=== PATIENT | female | born 1990 | race Caucasian/White ===

== ENCOUNTER 2019-06-27 22:30 | Observation (INO) ==
[2019-06-27 23:04] LABS: Bilirubin,Urine Negative (Negative); Blood,Urine Negative (Negative); Clarity,Urine Clear (Clear); Color,Urine Yellow (Yellow); Glucose,Urine (UA) Normal (Normal); Ketones,Urine Negative (Negative); Leukocyte Esterase,Urine Small (Negative); Nitrite,Urine Negative (Negative); Protein,Urine Negative (Neg-Trace); Specific Gravity,Urine 1.026 (1.010-1.025); Urobilinogen,Urine Normal (Normal)
[2019-06-27 23:07] LABS: Amphetamine Screen,Urine Negative ng/mL (Cutoff=1000); Barbiturate Screen,Urine Negative ng/mL (Cutoff=200); Benzodiazepines Screen,Urine Negative ng/mL (Cutoff=200); Cannabinoid Screen,Urine Negative ng/mL (Cutoff = 50); Cocaine Screen,Urine Negative ng/mL (Cutoff= 300); Opiate Screen,Urine Negative ng/mL (Cutoff=300); Phencyclidine Screen,Urine Negative ng/mL (Cutoff=25)
[2019-06-27 23:22] LABS: Basophils # 0.1 K/mcL (0.0-0.2); Basophils % 0.6 %; Eosinophils # 0.1 K/mcL (0.0-0.6); Hematocrit 45.4 % (35.3-44.9); Hemoglobin 14.5 g/dL (11.5-15.4); Immature Granulocytes % 0.4 % (0-4); Lymphocytes # 2.3 K/mcL (0.6-4.6); Mean Corpuscular HGB Conc 31.9 g/dL (31.6-35.5); Mean Corpuscular Hemoglobin 27.8 pg (28.0-33.3); Mean Corpuscular Volume 87.1 fL (83.0-100.0); Mean Platelet Volume 9.1 fL (9.4-12.4); Monocytes # 0.8 K/mcL (0.0-1.3); Monocytes % 6.9 %; Neutrophils # 7.6 K/mcL (1.6-8.9); Platelet Count 315 K/mcL (140-400); Red Blood Count 5.21 M/mcL (3.82-4.97); Red Cell Distribution Width 14.7 % (11.5-14.5); Segmented Neutrophils % 70.1 %; White Blood Count 10.9 K/mcL (4.3-11.1)
[2019-06-27 23:47] LABS: Acetaminophen < 10 mcg/mL (10-20); BUN/Creatinine Ratio 20 (6-26); Blood Urea Nitrogen 19 mg/dL (6-20); Calcium 9.6 mg/dL (8.6-10.3); Carbon Dioxide 24 mEq/L (23-29); Chloride 103 mEq/L (98-107); Ethanol < 10 mg/dL (Less than 10); Glucose 116 mg/dL (70-105); Osmolality,Calculated 287 (280-300); Potassium 3.5 mEq/L (3.5-5.1); Salicylate < 2.5 mg/dL (15.0-30.0); Sodium 137 mEq/L (136-145); eGFR For African Americans > 60 (> 60); eGFR For Non-African Americans > 60 (> 60)
--- NOTE | 2019-06-28 04:27 | Emergency Department Note ---
Disposition Clinical Impression: Suicidal ideation Disposition: Admitted As Inpatient Condition: Fair Referrals: NONE,PCP [Primary Care Provider] - Time of Disposition: 04:28 Psych HPI - General Chief Complaint: ED Psychiatric Symptoms Stated Complaint: SI Time Seen by Provider: 06/27/19 23:00 Source: patient, family Mode of arrival: private vehicle Limitations: no limitations Nursing Notes Reviewed: Yes Vital Signs Reviewed: Yes - History of Present Illness Pt complaint: suicidal ideation If medical clearance, reason: psychiatric condition Onset (ago): week(s) Duration: getting worse History of similar episodes: Yes Improves with: none Worsens with: none Context: significant life stressor Alleged intoxication: No - Related Data Home Medications Medication Instructions Recorded Confirmed BuPROPion SR (12 HR) [Wellbutrin 150 mg PO DAILY 06/28/19 06/28/19 SR] Sertraline [Zoloft] 100 mg PO DAILY 06/28/19 06/28/19 hydroCHLOROthiazide 25 mg PO DAILY 06/28/19 06/28/19 [Hydrochlorothiazide] lamoTRIgine [Lamictal] 100 mg PO DAILY 06/28/19 06/28/19 Allergies Allergy/AdvReac Type Severity Reaction Status Date / Time No Known Allergies Allergy Verified 02/04/19 11:21 Past Medical History - Past Medical History Medical history: Reports: hypertension Psychiatric history: Reports: depression, prior suicide attempt, previous psychiatric hospitalization - Social History Smoking Status: Former smoker Smokeless Tobacco Status: Yes Alcohol use: Reports: none Drug use: Reports: none Physical Exam - General Limitations: no limitations General appearance: alert, in no apparent distress Course Vital Signs Temperature 98.3 F 06/27/19 22:32 Pulse Rate 99 06/27/19 22:32 Respiratory Rate 20 06/27/19 22:32 Blood Pressure 161/99 06/27/19 22:32 O2 Sat by Pulse Oximetry 97 06/27/19 22:32 Temperature 98.3 F 06/27/19 22:32 Pulse Rate 91 06/28/19 02:30 Respiratory Rate 16 06/28/19 02:30 Blood Pressure 118/75 06/28/19 02:30 O2 Sat by Pulse Oximetry 98 06/28/19 02:30 Oxygen Delivery Oxygen Delivery Room Air Psych - Lab Data Result diagrams: 06/27/19 22:53 06/27/19 22:53 Lab Results 06/27/19 06/27/19 06/27/19 Range/Units 22:40 22:40 22:40 WBC (4.3-11.1) K/mcL RBC (3.82-4.97) M/mcL Hgb (11.5-15.4) g/dL Hct (35.3-44.9) % MCV (83.0-100.0) fL MCH (28.0-33.3) pg MCHC (31.6-35.5) g/dL RDW (11.5-14.5) % Plt Count (140-400) K/mcL MPV (9.4-12.4) fL Immature Gran % (0-4) % Seg Neutrophils % % Lymphocytes % % Monocytes % % Eosinophils % % Basophils % % Neutrophils # (1.6-8.9) K/mcL Lymphocytes # (0.6-4.6) K/mcL Monocytes # (0.0-1.3) K/mcL Eosinophils # (0.0-0.6) K/mcL Basophils # (0.0-0.2) K/mcL Sodium (136-145) mEq/L Potassium (3.5-5.1) mEq/L Chloride (98-107) mEq/L Carbon Dioxide (23-29) mEq/L BUN (6-20) mg/dL Creatinine (0.60-1.20) mg/dL Est GFR ( Amer) (> 60) Est GFR (Non-Af Amer) (> 60) BUN/Creatinine Ratio (6-26) Glucose (70-105) mg/dL Calculated Osmolality (280-300) Calcium (8.6-10.3) mg/dL Urine Color Yellow (Yellow) Urine Clarity Clear (Clear) Urine pH 6.0 (5.0-8.0) pH Units Ur Specific [place] 1.026 H (1.010-1.025) Urine Protein Negative (Neg-Trace) mg/dL Urine Glucose (UA) Normal (Normal) mg/dL Urine Ketones Negative (Negative) mg/dL Urine Blood Negative (Negative) Urine Nitrite Negative (Negative) Urine Bilirubin Negative (Negative) Urine Urobilinogen Normal (Normal) mg/dL Ur Leukocyte Esterase Small H (Negative) Urine Microscopic WBC 3-5 H (0-3) per hpf Urine Test Negative (Negative) Salicylates (15.0-30.0) mg/dL Urine Opiates Screen Negative (Sitofo=612) ng/mL Ur Buprenorphine Scrn Negative (Cutoff=5) ng/mL Acetaminophen (10-20) mcg/mL Ur Barbiturates Screen Negative (Uuakgg=734) ng/mL Ur Phencyclidine Scrn Negative (Cutoff=25) ng/mL Ur Amphetamines Screen Negative (Kkubdw=2535) ng/mL U Benzodiazepines Scrn Negative (Kjpfau=883) ng/mL Urine Cocaine Screen Negative (Cutoff= 300) ng/mL U Marijuana (THC) Screen Negative (Cutoff = 50) ng/mL Ur Drug Screen Interp See Below Ethyl Alcohol (Less than 10) mg/dL 06/27/19 06/27/19 Range/Units 22:53 22:53 WBC 10.9 (4.3-11.1) K/mcL RBC 5.21 H (3.82-4.97) M/mcL Hgb 14.5 (11.5-15.4) g/dL Hct 45.4 H (35.3-44.9) % MCV 87.1 (83.0-100.0) fL MCH 27.8 L (28.0-33.3) pg MCHC 31.9 (31.6-35.5) g/dL RDW 14.7 H (11.5-14.5) % Plt Count 315 (140-400) K/mcL MPV 9.1 L (9.4-12.4) fL Immature Gran % 0.4 (0-4) % Seg Neutrophils % 70.1 % Lymphocytes % 21.0 % Monocytes % 6.9 % Eosinophils % 1.0 % Basophils % 0.6 % Neutrophils # 7.6 (1.6-8.9) K/mcL Lymphocytes # 2.3 (0.6-4.6) K/mcL Monocytes # 0.8 (0.0-1.3) K/mcL Eosinophils # 0.1 (0.0-0.6) K/mcL Basophils # 0.1 (0.0-0.2) K/mcL Sodium 137 (136-145) mEq/L Potassium 3.5 (3.5-5.1) mEq/L Chloride 103 (98-107) mEq/L Carbon Dioxide 24 (23-29) mEq/L BUN 19 (6-20) mg/dL Creatinine 0.93 (0.60-1.20) mg/dL Est GFR ( Amer) > 60 (> 60) Est GFR (Non-Af Amer) > 60 (> 60) BUN/Creatinine Ratio 20 (6-26) Glucose 116 H (70-105) mg/dL Calculated Osmolality 287 (280-300) Calcium 9.6 (8.6-10.3) mg/dL Urine Color (Yellow) Urine Clarity (Clear) Urine pH (5.0-8.0) pH Units Ur Specific [place] (1.010-1.025) Urine Protein (Neg-Trace) mg/dL Urine Glucose (UA) (Normal) mg/dL Urine Ketones (Negative) mg/dL Urine Blood (Negative) Urine Nitrite (Negative) Urine Bilirubin (Negative) Urine Urobilinogen (Normal) mg/dL Ur Leukocyte Esterase (Negative) Urine Microscopic WBC (0-3) per hpf Urine Test (Negative) Salicylates < 2.5 L (15.0-30.0) mg/dL Urine Opiates Screen (Qeykoo=814) ng/mL Ur Buprenorphine Scrn (Cutoff=5) ng/mL Acetaminophen < 10 L (10-20) mcg/mL Ur Barbiturates Screen (Fawklr=564) ng/mL Ur Phencyclidine Scrn (Cutoff=25) ng/mL Ur Amphetamines Screen (Epepqx=2318) ng/mL U Benzodiazepines Scrn (Ycrpvu=271) ng/mL Urine Cocaine Screen (Cutoff= 300) ng/mL U Marijuana (THC) Screen (Cutoff = 50) ng/mL Ur Drug Screen Interp Ethyl Alcohol < 10 (Less than 10) mg/dL Psychiatric Medical Clearance - Medical Clearance Checklist Medical History: No Social History Section defined Current Vitals: Last Vital Signs Temp 98.3 F 06/27/19 22:32 Pulse 91 06/28/19 02:30 Resp 16 06/28/19 02:30 BP 118/75 06/28/19 02:30 Pulse Ox 98 06/28/19 02:30 Psychiatric Lab Panel: Drug Levels and Toxicity 06/27/19 06/27/19 22:40 22:53 Urine Opiates Screen Negative Acetaminophen < 10 L Ur Barbiturates Screen Negative Ur Phencyclidine Scrn Negative Ur Amphetamines Screen Negative U Benzodiazepines Scrn Negative Urine Cocaine Screen Negative U Marijuana (THC) Screen Negative Ethyl Alcohol < 10 Abnormal Labs: Abnormal lab results RBC 5.21 M/mcL (3.82-4.97) H 06/27/19 22:53 Hct 45.4 % (35.3-44.9) H 06/27/19 22:53 MCH 27.8 pg (28.0-33.3) L 06/27/19 22:53 RDW 14.7 % (11.5-14.5) H 06/27/19 22:53 MPV 9.1 fL (9.4-12.4) L 06/27/19 22:53 Glucose 116 mg/dL (70-105) H 06/27/19 22:53 Ur Specific [place] 1.026 (1.010-1.025) H 06/27/19 22:40 Ur Leukocyte Esterase Small (Negative) H 06/27/19 22:40 Urine Microscopic WBC 3-5 per hpf (0-3) H 06/27/19 22:40 Salicylates < 2.5 mg/dL (15.0-30.0) L 06/27/19 22:53 Acetaminophen < 10 mcg/mL (10-20) L 06/27/19 22:53 Statement of Medical Clearance: I have evaluated the patient, reviewed diagnostic information, and certify that the patient's medical condition is sufficiently stable that transfer to the psychiatric unit does not pose a significant risk of deterioration.
[2019-06-28 04:28] VITALS: BP 123/84
--- NOTE | 2019-06-28 04:28 | Emergency Department Note ---
Disposition Clinical Impression: Suicidal ideation Disposition: Admitted As Inpatient Condition: Fair Time of Disposition: 06:47 General Adult HPI - General Chief complaint: ED Psychiatric Symptoms Stated complaint: SI Time Seen by Provider: 06/27/19 23:00 Source: patient Limitations: no limitations - History of Present Illness Pain Scale: 0 - Related Data Home Medications Medication Instructions Recorded Confirmed BuPROPion SR (12 HR) [Wellbutrin 150 mg PO DAILY 06/28/19 06/28/19 SR] Sertraline [Zoloft] 100 mg PO DAILY 06/28/19 06/28/19 hydroCHLOROthiazide 25 mg PO DAILY 06/28/19 06/28/19 [Hydrochlorothiazide] lamoTRIgine [Lamictal] 100 mg PO DAILY 06/28/19 06/28/19 Allergies Allergy/AdvReac Type Severity Reaction Status Date / Time No Known Allergies Allergy Verified 02/04/19 11:21 Past Medical History - Past Medical History Medical history: Reports: hypertension Psychiatric history: Reports: depression, prior suicide attempt, previous psychiatric hospitalization - Social History Smoking Status: Former smoker Smokeless Tobacco Status: Yes Alcohol use: Reports: none Drug use: Reports: none Physical Exam - General Limitations: no limitations General appearance: alert, in no apparent distress Course Vital Signs Temperature 98.3 F 06/27/19 22:32 Pulse Rate 99 06/27/19 22:32 Respiratory Rate 20 06/27/19 22:32 Blood Pressure 161/99 06/27/19 22:32 O2 Sat by Pulse Oximetry 97 06/27/19 22:32 Temperature 98.1 F 06/28/19 04:27 Pulse Rate 100 06/28/19 04:27 Respiratory Rate 17 06/28/19 04:27 Blood Pressure 123/84 06/28/19 04:27 O2 Sat by Pulse Oximetry 97 06/28/19 04:27 Oxygen Delivery Oxygen Delivery Room Air Medical Decision Making - Lab Data Result diagrams: 06/27/19 22:53 06/27/19 22:53 Lab Results 06/27/19 06/27/19 06/27/19 Range/Units 22:40 22:40 22:40 WBC (4.3-11.1) K/mcL RBC (3.82-4.97) M/mcL Hgb (11.5-15.4) g/dL Hct (35.3-44.9) % MCV (83.0-100.0) fL MCH (28.0-33.3) pg MCHC (31.6-35.5) g/dL RDW (11.5-14.5) % Plt Count (140-400) K/mcL MPV (9.4-12.4) fL Immature Gran % (0-4) % Seg Neutrophils % % Lymphocytes % % Monocytes % % Eosinophils % % Basophils % % Neutrophils # (1.6-8.9) K/mcL Lymphocytes # (0.6-4.6) K/mcL Monocytes # (0.0-1.3) K/mcL Eosinophils # (0.0-0.6) K/mcL Basophils # (0.0-0.2) K/mcL Sodium (136-145) mEq/L Potassium (3.5-5.1) mEq/L Chloride (98-107) mEq/L Carbon Dioxide (23-29) mEq/L BUN (6-20) mg/dL Creatinine (0.60-1.20) mg/dL Est GFR ( Amer) (> 60) Est GFR (Non-Af Amer) (> 60) BUN/Creatinine Ratio (6-26) Glucose (70-105) mg/dL Calculated Osmolality (280-300) Calcium (8.6-10.3) mg/dL Urine Color Yellow (Yellow) Urine Clarity Clear (Clear) Urine pH 6.0 (5.0-8.0) pH Units Ur Specific [place] 1.026 H (1.010-1.025) Urine Protein Negative (Neg-Trace) mg/dL Urine Glucose (UA) Normal (Normal) mg/dL Urine Ketones Negative (Negative) mg/dL Urine Blood Negative (Negative) Urine Nitrite Negative (Negative) Urine Bilirubin Negative (Negative) Urine Urobilinogen Normal (Normal) mg/dL Ur Leukocyte Esterase Small H (Negative) Urine Microscopic WBC 3-5 H (0-3) per hpf Urine Test Negative (Negative) Salicylates (15.0-30.0) mg/dL Urine Opiates Screen Negative (Wjoffa=570) ng/mL Ur Buprenorphine Scrn Negative (Cutoff=5) ng/mL Acetaminophen (10-20) mcg/mL Ur Barbiturates Screen Negative (Uqwsrp=032) ng/mL Ur Phencyclidine Scrn Negative (Cutoff=25) ng/mL Ur Amphetamines Screen Negative (Qwpbuk=6993) ng/mL U Benzodiazepines Scrn Negative (Bfqknd=973) ng/mL Urine Cocaine Screen Negative (Cutoff= 300) ng/mL U Marijuana (THC) Screen Negative (Cutoff = 50) ng/mL Ur Drug Screen Interp See Below Ethyl Alcohol (Less than 10) mg/dL 06/27/19 06/27/19 Range/Units 22:53 22:53 WBC 10.9 (4.3-11.1) K/mcL RBC 5.21 H (3.82-4.97) M/mcL Hgb 14.5 (11.5-15.4) g/dL Hct 45.4 H (35.3-44.9) % MCV 87.1 (83.0-100.0) fL MCH 27.8 L (28.0-33.3) pg MCHC 31.9 (31.6-35.5) g/dL RDW 14.7 H (11.5-14.5) % Plt Count 315 (140-400) K/mcL MPV 9.1 L (9.4-12.4) fL Immature Gran % 0.4 (0-4) % Seg Neutrophils % 70.1 % Lymphocytes % 21.0 % Monocytes % 6.9 % Eosinophils % 1.0 % Basophils % 0.6 % Neutrophils # 7.6 (1.6-8.9) K/mcL Lymphocytes # 2.3 (0.6-4.6) K/mcL Monocytes # 0.8 (0.0-1.3) K/mcL Eosinophils # 0.1 (0.0-0.6) K/mcL Basophils # 0.1 (0.0-0.2) K/mcL Sodium 137 (136-145) mEq/L Potassium 3.5 (3.5-5.1) mEq/L Chloride 103 (98-107) mEq/L Carbon Dioxide 24 (23-29) mEq/L BUN 19 (6-20) mg/dL Creatinine 0.93 (0.60-1.20) mg/dL Est GFR ( Amer) > 60 (> 60) Est GFR (Non-Af Amer) > 60 (> 60) BUN/Creatinine Ratio 20 (6-26) Glucose 116 H (70-105) mg/dL Calculated Osmolality 287 (280-300) Calcium 9.6 (8.6-10.3) mg/dL Urine Color (Yellow) Urine Clarity (Clear) Urine pH (5.0-8.0) pH Units Ur Specific [place] (1.010-1.025) Urine Protein (Neg-Trace) mg/dL Urine Glucose (UA) (Normal) mg/dL Urine Ketones (Negative) mg/dL Urine Blood (Negative) Urine Nitrite (Negative) Urine Bilirubin (Negative) Urine Urobilinogen (Normal) mg/dL Ur Leukocyte Esterase (Negative) Urine Microscopic WBC (0-3) per hpf Urine Test (Negative) Salicylates < 2.5 L (15.0-30.0) mg/dL Urine Opiates Screen (Vprefn=510) ng/mL Ur Buprenorphine Scrn (Cutoff=5) ng/mL Acetaminophen < 10 L (10-20) mcg/mL Ur Barbiturates Screen (Wkccgm=784) ng/mL Ur Phencyclidine Scrn (Cutoff=25) ng/mL Ur Amphetamines Screen (Ftisjz=0683) ng/mL U Benzodiazepines Scrn (Jurgov=318) ng/mL Urine Cocaine Screen (Cutoff= 300) ng/mL U Marijuana (THC) Screen (Cutoff = 50) ng/mL Ur Drug Screen Interp Ethyl Alcohol < 10 (Less than 10) mg/dL Attestation Statement - Attestation Attestation: For this encounter, I have reviewed the LEATH[employer] PRODUCTION MACHINE OPERATOR or PA documentation, treatment plan, and medical decision making; and I have had face to face time with this patient. [id number] time provided. Patient appears in no acute distress. She will be admitted to the mental health service
[2019-06-28] MEDS ORDERED: *HR* LORazepam 1 MG TABLET PO PRN (04:35)
[2019-06-28] MEDS ORDERED: *HR* LORazepam 2 MG/ML VIAL IM PRN (04:35)
[2019-06-28] MEDS ORDERED: Mag Hydrox/Al Hydrox/Simeth 30 ML UDC PO PRN (04:35)
[2019-06-28] MEDS ORDERED: hydrOXYzine pamoate 25 MG CAPSULE PO PRN (04:35)
[2019-06-28] MEDS ORDERED: Haloperidol Lactate 5 MG/ML VIAL IM PRN (04:35)
[2019-06-28] MEDS ORDERED: traZODone 50 MG TABLET PO PRN (04:35)
[2019-06-28] MEDS ORDERED: MOM Conc 10 ML UD.LIQ PO PRN (04:35)
[2019-06-28] MEDS ORDERED: Ibuprofen 400 MG TABLET PO PRN (04:35)
[2019-06-28] MEDS ORDERED: Nicotine 14 MG PATCH.TD24 TD SCH (09:00)
--- NOTE | 2019-06-28 12:13 | Psychiatry History & Physical ---
Date of Encounter: 06/28/19 Time of Encounter: 10:00 History of Present Illness Patient Stated Chief Complaint: Self-harm Medicare Admission Attestation: For traditional Medicare patients the provided hospital inpatient services are reasonable and necessary and in the case of services not specified as inpatient-only under 42 CFR 419.22 (n), that they are appropriately provided as inpatient services in accordance 42 CFR 412.3. For Critical Access Hospital the patient may reasonably be expected to be discharged or transferred to a hospital within 96 hours after admission to the Critical Access Hospital. Admitted From: Emergency Dept Plans for Post Hospital Care: Transfer Inp Rehab Fac (Client came from [facility].) History of Present Illness: Ms. Coon is a 29 year old female who was admitted from the ER for suicidal ideation/plan. She states last Thursday reporting to staff at [facility] thoughts of self-harm. A self-harm contract was made and client was observed during the weekend. She reports feeling uncomfortable with the extra attention and says that is the reason for buying a "box spring maker" on Thursday to harm herself. She was brought to the ER after staff discovered she had purchased the box spring maker and reported plan and intent to initiate self-harm. She has resided at [facility] for treatment of substance use disorder the past 4 months. She states "heroin is drug of choice". 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 Prior to [facility] she was living in [place] with a roommate and lost housing after an accidental overdose with heroin. She reports multiple hospitalizations for SI and SA. Client at time of interview was seen at bedside. She appeared irritable and withdrawn. Client described mood as "depressed and irritable". She did not endorse suicidal thought/ideation/plan. She reports medications as Zoloft 100 mg PO once daily, Lamicatal 100 mg PO and Wellbutrin 150 mg PO. Past Med Surg Social Fam HX - Past Medical History Source: patient Medical history: hypertension - Past Psychiatric History Psychiatric history: Reports: depression, PTSD, prior suicide attempt, previous psychiatric hospitalization Past psychiatric history details: Client self-reports history of being diagnosed with PTSD, MDD,RAMON, OCD and Borderline disorder. She has been hospitalized on multiple occasions for SI and SA via heroin overdose and intentional medication overdoses. She is currently at [facility] for past 4 months for drug rehabilitation. Family psychiatric history: Yes Family Psychiatric History Details: Mother reported as having multiple mental health problems, unspecified. Family History of Suicide: Attempted Family Suicide History Details: Mother reported as multiple suicide attempts. - Social History Smoking Status: Former smoker Smokeless Tobacco Status: Yes Alcohol use: none Drug use: none, IV Drug Use (Endorses 14 year history of Heroin use. Last use in December of this year. ) Occupational status: unemployed Current living situation: Other ([facility] for [facility] past 4 months. ) Activity Level: Independent ambulation Recent Out of Country Travel Within the Last 8 Weeks: No Exposure or Possible Exposure to Illness During Travel: No Medications & Allergies BuPROPion SR (12 HR) [Wellbutrin SR] 150 mg PO DAILY 06/28/19 [History] Sertraline [Zoloft] 100 mg PO DAILY 06/28/19 [History] hydroCHLOROthiazide [Hydrochlorothiazide] 25 mg PO DAILY 06/28/19 [History] lamoTRIgine [Lamictal] 100 mg PO DAILY 06/28/19 [History] Allergy/AdvReac Type Severity Reaction Status Date / Time No Known Allergies Allergy Verified 02/04/19 11:21 Review of Systems Constitutional: Denies: fever, chills, weight change, night sweats Eyes: Denies: vision change Cardiovascular: Denies: chest pain, palpitations, edema, syncope Respiratory: Denies: cough, wheezes Gastrointestinal: Denies: abdominal pain, nausea, vomiting, diarrhea, constipation Genitourinary female: Denies: urgency, dysuria, frequency Musculoskeletal: Denies: joint swelling, myalgia Integumentary: Denies: rash, pruritus Neurological: Denies: headache, weakness, numbness, confusion, abnormal gait, vertigo Psychiatric: Reports: suicidal ideation (noting endorsing SI currently. Was endorsing SI last night. ). Denies: depression, anxiety, abnormal sleep pattern , homicidal ideation, auditory hallucinations, visual hallucinations Endocrine: Denies: fatigue, heat or cold intolerance Exam - HEENT Head exam IM: Present: atraumatic Eye exam IM: Present: normal appearance ENT exam IM: Present: normal exam - Neurological Neurological exam: Present: CN II-XII intact, alert - Respiratory Respiratory exam IM: Absent: respiratory distress, wheezes, tachypnea - Extremities Extremities exam IM: Present: full ROM - Skin Skin exam IM: Present: intact, normal color. Absent: cyanosis, diaphoretic, rash - Constitutional Vitals: Temp Pulse Resp BP Pulse Ox 98.1 F 100 17 123/84 97 06/28/19 04:27 06/28/19 04:27 06/28/19 04:27 06/28/19 04:27 06/28/19 04:27 General appearance: age & developmentally appropriate - Musculoskeletal Station: relaxed Strength & Tone: normal for patient - Psychiatric Patient Orientation: Yes Person, Yes Time Level of alertness: Sedated Behavior: agitated, withdrawn Psychomotor activity: Slowed Eye Contact: No Eye Contact Mood Description: Irritable Affect description: congruent with mood Speech Volume: Normal, Loud Speech pattern: normal rate, mumbled Language & Vocabulary: consistent with education Thought Process: Intact, Logical Thought Content: Yes Intact, Yes Suicidal ideation, No Homicidal ideation, No Overt delusions, No Grandiose delusion Perceptual Disturbances: No Reacting to internal stimuli, No Auditory hallucinations Memory Description: Grossly Intact Patient Reliability: Questionable Historian Fund of knowledge: Yes abstraction ability Intelligence Estimate: Average Judgment: Limited Insight: Minimal Results - Drug Levels and Toxicology Drug Levels and Toxicology: Drug Levels and Toxicity 06/27/19 06/27/19 22:40 22:53 Urine Opiates Screen Negative Acetaminophen < 10 L Ur Barbiturates Screen Negative Ur Phencyclidine Scrn Negative Ur Amphetamines Screen Negative U Benzodiazepines Scrn Negative Urine Cocaine Screen Negative U Marijuana (THC) Screen Negative Ethyl Alcohol < 10 - Labs Labs: Laboratory Last Values WBC 10.9 K/mcL (4.3-11.1) 06/27/19 22:53 RBC 5.21 M/mcL (3.82-4.97) H 06/27/19 22:53 Hgb 14.5 g/dL (11.5-15.4) 06/27/19 22:53 Hct 45.4 % (35.3-44.9) H 06/27/19 22:53 MCV 87.1 fL (83.0-100.0) 06/27/19 22:53 MCH 27.8 pg (28.0-33.3) L 06/27/19 22:53 MCHC 31.9 g/dL (31.6-35.5) 06/27/19 22:53 RDW 14.7 % (11.5-14.5) H 06/27/19 22:53 Plt Count 315 K/mcL (140-400) 06/27/19 22:53 MPV 9.1 fL (9.4-12.4) L 06/27/19 22:53 Immature Gran % 0.4 % (0-4) 06/27/19 22:53 Seg Neutrophils % 70.1 % 06/27/19 22:53 Lymphocytes % 21.0 % 06/27/19 22:53 Monocytes % 6.9 % 06/27/19 22:53 Eosinophils % 1.0 % 06/27/19 22:53 Basophils % 0.6 % 06/27/19 22:53 Neutrophils # 7.6 K/mcL (1.6-8.9) 06/27/19 22:53 Lymphocytes # 2.3 K/mcL (0.6-4.6) 06/27/19 22:53 Monocytes # 0.8 K/mcL (0.0-1.3) 06/27/19 22:53 Eosinophils # 0.1 K/mcL (0.0-0.6) 06/27/19 22:53 Basophils # 0.1 K/mcL (0.0-0.2) 06/27/19 22:53 Sodium 137 mEq/L (136-145) 06/27/19 22:53 Potassium 3.5 mEq/L (3.5-5.1) 06/27/19 22:53 Chloride 103 mEq/L (98-107) 06/27/19 22:53 Carbon Dioxide 24 mEq/L (23-29) 06/27/19 22:53 BUN 19 mg/dL (6-20) 06/27/19 22:53 Creatinine 0.93 mg/dL (0.60-1.20) 06/27/19 22:53 Est GFR ( Amer) > 60 (> 60) 06/27/19 22:53 Est GFR (Non-Af Amer) > 60 (> 60) 06/27/19 22:53 BUN/Creatinine Ratio 20 (6-26) 06/27/19 22:53 Glucose 116 mg/dL (70-105) H 06/27/19 22:53 Calculated Osmolality 287 (280-300) 06/27/19 22:53 Calcium 9.6 mg/dL (8.6-10.3) 06/27/19 22:53 Urine Color Yellow (Yellow) 06/27/19 22:40 Urine Clarity Clear (Clear) 06/27/19 22:40 Urine pH 6.0 pH Units (5.0-8.0) 06/27/19 22:40 Ur Specific [place] 1.026 (1.010-1.025) H 06/27/19 22:40 Urine Protein Negative mg/dL (Neg-Trace) 06/27/19 22:40 Urine Glucose (UA) Normal mg/dL (Normal) 06/27/19 22:40 Urine Ketones Negative mg/dL (Negative) 06/27/19 22:40 Urine Blood Negative (Negative) 06/27/19 22:40 Urine Nitrite Negative (Negative) 06/27/19 22:40 Urine Bilirubin Negative (Negative) 06/27/19 22:40 Urine Urobilinogen Normal mg/dL (Normal) 06/27/19 22:40 Ur Leukocyte Esterase Small (Negative) H 06/27/19 22:40 Urine Microscopic WBC 3-5 per hpf (0-3) H 06/27/19 22:40 Urine Test Negative (Negative) 06/27/19 22:40 Salicylates < 2.5 mg/dL (15.0-30.0) L 06/27/19 22:53 Urine Opiates Screen Negative ng/mL (Nxjpkm=597) 06/27/19 22:40 Ur Buprenorphine Scrn Negative ng/mL (Cutoff=5) 06/27/19 22:40 Acetaminophen < 10 mcg/mL (10-20) L 06/27/19 22:53 Ur Barbiturates Screen Negative ng/mL (Jbmwem=177) 06/27/19 22:40 Ur Phencyclidine Scrn Negative ng/mL (Cutoff=25) 06/27/19 22:40 Ur Amphetamines Screen Negative ng/mL (Mtwjzd=3293) 06/27/19 22:40 U Benzodiazepines Scrn Negative ng/mL (Sonrau=887) 06/27/19 22:40 Urine Cocaine Screen Negative ng/mL (Cutoff= 300) 06/27/19 22:40 U Marijuana (THC) Screen Negative ng/mL (Cutoff = 50) 06/27/19 22:40 Ur Drug Screen Interp See Below 06/27/19 22:40 Ethyl Alcohol < 10 mg/dL (Less than 10) 06/27/19 22:53 Assessment and Plan (1) Adjustment disorder with depressed mood Current visit: Yes Status: Acute Plan: Admit inpatient for safety and stabilization, Close observation, Suicide Precautions per unit protocol, Encourage participation in unit milieu, Group Therapy, Monitor sleep Additional Plan: Client adhered to medication compliance while at [facility]. Home medications confirmed. Will continue home medications including Hydrochlorothiazide 25 mg, Buproprion SR 150 mg, Sertraline 100 mg and Lamotrigine 100 mg. Encouraged client to participate in group. Discussed treatment options. Risks, benefits, side effects, alternatives discussed w/pt: Yes Patient agreeable to treatment: Yes Estimated Length of Stay (Days): 3 - Attending Attestation I examined this patient and my medical decision-making was reviewed with the Resident Physician. I agree with the documented findings, disposition and treatment plan as described.
--- NOTE | 2019-06-28 13:33 | Discharge Summary ---
Date of Encounter: 06/28/19 Time of Encounter: 13:31 Diagnosis - Discharge Diagnosis (1) Major depression Status: Acute Qualifiers: Major depression recurrence: recurrent Active/Remission status: currently active Major depression episode severity: moderate Qualified Code(s): F33.1 - Major depressive disorder, recurrent, moderate (2) Post traumatic stress disorder (PTSD) Status: Acute (3) Borderline personality disorder Status: Acute Medications - Discharge Medications BuPROPion SR (12 HR) [Wellbutrin SR] 150 mg PO DAILY 06/28/19 [History] Sertraline [Zoloft] 100 mg PO DAILY 06/28/19 [History] hydroCHLOROthiazide [Hydrochlorothiazide] 25 mg PO DAILY 06/28/19 [History] lamoTRIgine [Lamictal] 100 mg PO DAILY 06/28/19 [History] Allergy/AdvReac Type Severity Reaction Status Date / Time No Known Allergies Allergy Verified 02/04/19 11:21 Results Procedures and tests throughout hospitalization: Completed Lab Orders Category Date Time Status Acetaminophen Stat Lab 06/27/19 22:53 Completed Basic Metabolic Panel Stat Lab 06/27/19 22:53 Completed Complete Blood Count [HEME] Stat Lab 06/27/19 22:53 Completed Drug Screen, Urine [UCHEM] Stat Lab 06/27/19 22:40 Completed Ethanol Stat Lab 06/27/19 22:53 Completed Test Result, Urine [URIN] Stat Lab 06/27/19 22:40 Completed Salicylate Stat Lab 06/27/19 22:53 Completed Urinalysis reflex Microscopic [URIN] Stat Lab 06/27/19 22:40 Completed Provider Date of admission: 06/28/19 04:30 Primary care physician: PCP NONE Discharging clinician: [facility] Exam - Constitutional Vitals: Temp Pulse Resp BP Pulse Ox 98.1 F 100 17 123/84 97 06/28/19 04:27 06/28/19 04:27 06/28/19 04:27 06/28/19 04:27 06/28/19 04:27 General appearance: age & developmentally appropriate, well-groomed, well- nourished - Musculoskeletal Gait: normal Station: relaxed Strength & Tone: normal for patient - Psychiatric Patient Orientation: Yes Person, Yes Time, Yes Place Level of alertness: Alert Behavior: calm, cooperative Psychomotor activity: Normal Eye Contact: Maintains Eye Contact Mood Description: Irritable Affect description: congruent with mood Speech Volume: Normal Speech pattern: normal rate, normal rhythm, normal tone, fluent, spontaneous Language & Vocabulary: consistent with education Thought Process: Linear, Goal Oriented Thought Content: No Suicidal ideation, No Homicidal ideation, No Overt delusions Perceptual Disturbances: No Auditory hallucinations, No Visual hallucinations Attention Span Ability: Capable of Focused Attention Memory Description: Grossly Intact Patient Reliability: Reliable Historian Fund of knowledge: Yes abstraction ability Intelligence Estimate: Average Judgment: Fair Insight: Partial Hospital Course Hospital course: Ms. Coon is a 29 year old female who was admitted for SI and thoughts of wanting to cut. Client has been residing at [facility] since December. 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 Client states she loves the [facility] and she has been doing really well there. However, she recently started discussing some past traumas in her therapy sessions and this has triggered her to want to self harm. Client has a long history of self harm behaviors and suicidal gestures. Has been relatively stable for a while but reliving the past has made her want to revert to her old coping strategies. While out shopping with staff the other night she bought an utility knife. She did not use it but had thoughts of using it. She told her roommate and staff and came to the ER instead. Today client states she feels much better. Denies SI, intent, or plan. Denies any further thoughts of wanting to cut. States she just needed to be in a safe and secure environment for a night to give herself a mental reset. Feels ready to deal with her past in therapy again. Well linked with mental health services where she resides at. States she loves her mental health counselor and that she has her mental health counselor's personal cell phone. States her mental health counselor is the one she called when she wanted to cut and that together they decided she should come to the hospital. Client states she has signed contracts with the [facility] in regards to her mental health issues and that she takes the contracts seriously. Client states she is contracted to be honest with mental health providers and that she will disclose any thoughts of self harm before acting on them. Client states she has a history of wanting to end her life but this time she never wanted to . Claims she was more focused on self-injury but that this urge has passed. Feels safe at the [facility] and feels being back in this environment is more healthy for her than remaining at the hospital. Client reports the [facility] is a secure and well staffed setting and that she gets the attention she needs which is how she got to the hospital in the first place. Client denies HI/AH/VH. Future oriented and focused on her AOD treatment. Will plan to discharge today. Total time spent with client greater than 30 minutes. Patient was educated of her diagnosis and the risks, benefits, and side effects of this treatment and alternative treatment options and was monitored for responsiveness and side effects. Mood, anxiety, sleep, appetite, and interest improved, as did future orientation. Self-harm thoughts subsided, thinking cleared, psychosis resolved, and mood stabilized. Patient was able to attend both individual and group therapy sessions as well as meeting with the psychiatrist daily and urged to discuss any medication or treatment issues or other concerns. The patient was educated primarily by verbal means about their diagnosis and manifestations in their life. The option for treatment including group and individual therapy programming was offered to the patient in the use of medications with all their potential risks, benefits, and side effects were discussed with the patient at length. The patient was given the opportunity to ask questions and was noted to participate in the treatment in the planning process. The patient felt ready and eager to be discharged from the inpatient psychiatric unit to continue on with treatment as an outpatient. The patient agreed that she is safe for this disposition. The patient was considered to be able to participate in informed consent and decision making with respect to medical, legal, and financial issues of the time of discharge. At the time of discharge the patient adamantly denied any concerns for lethality including suicidal or homicidal thoughts ideations or plans and was future oriented toward ongoing mental health care, medical follow-up and sobriety. - Time Spent with Patient Total time spent providing and/or coordinating discharge services: Greater than 30 minutes Assessment and Plan - Patient/Caregiver Discharge Instructions Activity: resume usual activities as tolerated Diet: regular diet - Follow up Plan Follow up with: [facility] [Other] (Upon discharge from the hospital you will be returning to [facility] for continued treatment. While there, you will be seen daily by [facility] counselors and complex case manager, both individually and in group. Please work with [facility] staff to develop a treatment plan based on your individual needs and goals. ) Functional capacity at discharge: independent ambulation Overall status at discharge: Stable Disposition: Transfer Other Quality - Multiple Antipsychotics Patient discharged on 2 or more antipsychotic medications: No Procedures - Procedures Procedures: Medication Management, Crisis Stabilization, Supportive Therapy, Group Therapy
[2019-06-28] MEDS ORDERED: lamoTRIgine 100 MG TABLET PO SCH (21:00)
[2019-06-29] MEDS ORDERED: hydroCHLOROthiazide 25 MG TABLET PO SCH (09:00)
[2019-06-29] MEDS ORDERED: BuPROPion SR (12 HR) 150 MG TABLET PO SCH (09:00)
== END 2019-06-28 14:40 | disposition other institution (70) ==
LOC: EMEROOARM 22:30 → 1ANU 06-28 04:30 → INTOOBSV 06-28 04:30 → 1ANU 06-28 04:40
PROVIDERS: ADMIT Psychiatry & Neurology Psychiatry; ATTEND Psychiatry & Neurology Psychiatry

== ENCOUNTER 2021-06-07 11:31 | Inpatient (IN) ==
[2021-06-07] MEDS ORDERED: *HR* OxyCODONE/APAP 5/325 TABLET PO ONE ×2 (11:54→23:22)
[2021-06-07 12:17] LABS: Hematocrit 36.6 % (35.3-44.9); Hemoglobin 11.7 g/dL (11.5-15.4); Lymphocytes # 1.7 K/mcL (0.6-4.6); Mean Corpuscular Hemoglobin 27.5 pg (28.0-33.3); Mean Corpuscular Volume 86.1 fL (83.0-100.0); Mean Platelet Volume 9.2 fL (9.4-12.4); Platelet Count 270 K/mcL (140-400); Red Blood Count 4.25 M/mcL (3.82-4.97); Red Cell Distribution Width 15.3 % (11.5-14.5); White Blood Count 6.6 K/mcL (4.3-11.1)
[2021-06-07 12:38] LABS: Alanine Aminotransferase 74 Units/L (7-52); Albumin 3.9 g/dL (3.5-5.7); Albumin/Globulin Ratio 1.4 (1.1-2.2); Alkaline Phosphatase 53 Units/L (34-104); Aspartate Amino Transferase 182 Units/L (13-39); BUN/Creatinine Ratio 16 (6-26); Bilirubin,Total 0.8 mg/dL (0.3-1.0); Blood Urea Nitrogen 23 mg/dL (6-20); Calcium 8.9 mg/dL (8.6-10.3); Carbon Dioxide 33 mEq/L (23-29); Chloride 93 mEq/L (98-107); Globulin 2.8 g/dL (2.4-3.5); Glucose 111 mg/dL (70-105); Osmolality,Calculated 284 (280-300); Potassium 2.5 mEq/L (3.5-5.1); Sodium 135 mEq/L (136-145); Total Protein 6.7 g/dL (6.4-8.9); eGFR For African Americans 52 (> 60); eGFR For Non-African Americans 43 (> 60)
[2021-06-07 12:58] LABS: Eosinophils # 0.3 K/mcL (0.0-0.6); Monocytes # 0.8 K/mcL (0.0-1.3); Neutrophils # 3.8 K/mcL (1.6-8.9); Platelet Estimate Normal (Normal); Reactive Lymphocytes Present (Not Present)
[2021-06-07 13:12] LABS: Troponin I < 0.03 ng/mL (< 0.04)
[2021-06-07 14:23] LABS: Potassium 2.6 mEq/L (3.5-5.1)
[2021-06-07 14:44] LABS: Bacteria,Urine Few per hpf (None-Few); Bilirubin,Urine Negative (Negative); Blood,Urine Moderate (Negative); Clarity,Urine Turbid (Clear); Color,Urine Yellow (Yellow); Glucose,Urine (UA) Normal (Normal); Hyaline Casts,Urine Many per lpf (None Seen); Ketones,Urine Negative (Negative); Leukocyte Esterase,Urine Moderate (Negative); Mucus,Urine Few per lpf (None-Few); Nitrite,Urine Negative (Negative); PH,Urine 5.5 pH Units (5.0-8.0); Protein,Urine 30 mg/dL (Neg-Trace); Specific Gravity,Urine 1.024 (1.010-1.025); Squamous Epithelial Cell,Urine Moderate per hpf (None-Few); Transitional Epi Cells,Urine Few per hpf (None-Few); Urobilinogen,Urine Normal (Normal); WBC,Urine 15-30 per hpf (0-3)
[2021-06-07] MEDS ORDERED: 0.9 % Sodium Chloride 1,000 ML IV ONE (15:32)
[2021-06-07] MEDS ORDERED: Naloxone 0.4 MG/ML INJ IVP PRN (16:18)
[2021-06-07] MEDS ORDERED: Ondansetron 4 MG/2 ML VIAL IVP PRN (16:18)
[2021-06-07] MEDS ORDERED: 0.9 % Sodium Chloride 1,000 ML IVC SCH (16:30)
[2021-06-07] MEDS ORDERED: *HR* OxyCODONE/APAP 5/325 TABLET PO PRN (16:38)
[2021-06-07] MEDS ORDERED: Potassium Chloride 40 MEQ, Lidocaine 1% 2 ML in 0.9 % Sodium Chloride 500 ML IVPB ONE (16:43)
[2021-06-07 16:49] LABS: Acetaminophen < 10 mcg/mL (10-20); Ethanol < 10 mg/dL (Less than 10); Magnesium 1.5 mg/dL (1.6-2.6)
[2021-06-07 17:13] LABS: Creatine Kinase 5383 Units/L (30-223)
[2021-06-07] MEDS: cefTRIAXone 1,000 MG in 0.9 % Sodium Chloride Mini Bag 100 ML IVPB SCH (18:41)
[2021-06-07] MEDS: 0.9 % Sodium Chloride 1,000 ML IVC SCH (19:00)
[2021-06-07] MEDS: Acetaminophen 325 MG TABLET PO PRN (20:08)
[2021-06-07] MEDS: Melatonin 3 MG TABLET PO PRN (23:35)
[2021-06-08] MEDS: 0.9 % Sodium Chloride 1,000 ML IVC SCH ×3 (01:03→21:20)
[2021-06-08 02:21] LABS: Basophils % 0.7 %; Eosinophils # 0.1 K/mcL (0.0-0.6); Eosinophils % 2.9 %; Hematocrit 34.4 % (35.3-44.9); Hemoglobin 11.3 g/dL (11.5-15.4); Immature Granulocytes % 0.4 % (0-4); Lymphocytes # 1.8 K/mcL (0.6-4.6); Lymphocytes % 40.4 %; Mean Corpuscular HGB Conc 32.8 g/dL (31.6-35.5); Mean Corpuscular Hemoglobin 27.9 pg (28.0-33.3); Mean Corpuscular Volume 84.9 fL (83.0-100.0); Mean Platelet Volume 9.4 fL (9.4-12.4); Neutrophils # 1.6 K/mcL (1.6-8.9); Platelet Count 254 K/mcL (140-400); Red Blood Count 4.05 M/mcL (3.82-4.97); Red Cell Distribution Width 15.2 % (11.5-14.5); Segmented Neutrophils % 34.6 %; White Blood Count 4.5 K/mcL (4.3-11.1)
[2021-06-08 02:41] LABS: BUN/Creatinine Ratio 19 (6-26); Blood Urea Nitrogen 22 mg/dL (6-20); Calcium 8.6 mg/dL (8.6-10.3); Carbon Dioxide 32 mEq/L (23-29); Chloride 99 mEq/L (98-107); Glucose 108 mg/dL (70-105); Magnesium 1.9 mg/dL (1.6-2.6); Osmolality,Calculated 290 (280-300); Phosphorous 2.7 mg/dL (2.7-4.5); Potassium 2.6 mEq/L (3.5-5.1); Sodium 138 mEq/L (136-145); eGFR For African Americans > 60 (> 60); eGFR For Non-African Americans 54 (> 60)
[2021-06-08 02:42] LABS: Albumin 3.6 g/dL (3.5-5.7); Albumin/Globulin Ratio 1.4 (1.1-2.2); Bilirubin,Direct 0.1 mg/dL (0.0-0.2); Bilirubin,Indirect 0.4 mg/dL (0.0-1.0); Bilirubin,Total 0.5 mg/dL (0.3-1.0); Globulin 2.5 g/dL (2.4-3.5); Total Protein 6.1 g/dL (6.4-8.9)
[2021-06-08 03:40] LABS: Platelet Estimate Normal (Normal)
[2021-06-08] MEDS ORDERED: Potassium Chloride 40 MEQ, Lidocaine 1% 2 ML in 0.9 % Sodium Chloride 500 ML IVPB ONE (07:01)
[2021-06-08] MEDS ORDERED: Isovue-370 500 ML BOTTLE IVP ONE (07:03)
[2021-06-08] MEDS: Venlafaxine XR (24 HR) 150 MG CAP.ER.24H PO SCH (08:38)
[2021-06-08] MEDS: BuPROPion XL (24 HR) 150 MG TABLET PO SCH (08:39)
[2021-06-08] MEDS: lamoTRIgine 25 MG TABLET PO SCH (08:39)
[2021-06-08] MEDS: *HR* OxyCODONE/APAP 5/325 TABLET PO PRN ×2 (08:45→17:42)
[2021-06-08 09:37] LABS: Amphetamine Screen,Urine Negative ng/mL (Cutoff=1000); Barbiturate Screen,Urine Negative ng/mL (Cutoff=200); Benzodiazepines Screen,Urine Negative ng/mL (Cutoff=200); Cannabinoid Screen,Urine Negative ng/mL (Cutoff = 50); Cocaine Screen,Urine Negative ng/mL (Cutoff= 300); Opiate Screen,Urine Negative ng/mL (Cutoff=300); Phencyclidine Screen,Urine Negative ng/mL (Cutoff=25)
[2021-06-08] MEDS ORDERED: *HR* Heparin 5,000 UNIT/ML VIAL IVP PRN ×2 (10:45)
[2021-06-08] MEDS ORDERED: *HR* Heparin 5,000 UNIT/ML VIAL IVP ONE (10:45)
[2021-06-08] MEDS ORDERED: Perflutren Lipid Microsphere 1.3 ML in 0.9 % Sodium Chloride 8.7 ML IVP PRN (10:46)
[2021-06-08 11:28] LABS: INR 1.1; Prothrombin Time 12.9 Seconds (9.4-12.1)
[2021-06-08 11:31] LABS: Heparin anti-factor XA UFH < 0.04 IU/mL (0.30-0.70)
[2021-06-08 13:12] LABS: Adenovirus Not Detected (Not Detect); Bordetella Pertussis Not Detected (Not Detect); Chlamydophila pneumoniae Not Detected (Not Detect); Coronavirus 229E DETECTED (Not Detect); Coronavirus HKU1 Not Detected (Not Detect); Coronavirus NL63 Not Detected (Not Detect); Coronavirus OC43 Not Detected (Not Detect); Human Metapneumovirus Not Detected (Not Detect); Human Rhinovirus/Enterovirus Not Detected (Not Detect); Influenza A Subtype 2009 H1 Not Detected (Not Detect); Influenza B Not Detected (Not Detect); Mycoplasma pneumoniae Not Detected (Not Detect); Parainfluenza Virus 1 Not Detected (Not Detect); Parainfluenza Virus 2 Not Detected (Not Detect); Parainfluenza Virus 3 Not Detected (Not Detect); Parainfluenza Virus 4 Not Detected (Not Detect); Respiratory Syncytial Virus Not Detected (Not Detect); SARS-CoV-2 Not Detected (Not Detect)
[2021-06-08] MEDS: Heparin 25,000UNIT/250ML 1/2NS 25,000 UNIT/250 ML IV.SOLN IVC SCH (13:34)
[2021-06-08] MEDS: cefTRIAXone 1,000 MG in 0.9 % Sodium Chloride Mini Bag 100 ML IVPB SCH (16:08)
[2021-06-08] MEDS: Acetaminophen 325 MG TABLET PO PRN (20:03)
[2021-06-09 02:49] LABS: Basophils % 0.6 %; Eosinophils # 0.2 K/mcL (0.0-0.6); Eosinophils % 4.9 %; Hematocrit 34.5 % (35.3-44.9); Hemoglobin 10.9 g/dL (11.5-15.4); Immature Granulocytes % 0.4 % (0-4); Lymphocytes # 2.2 K/mcL (0.6-4.6); Lymphocytes % 46.2 %; Mean Corpuscular HGB Conc 31.6 g/dL (31.6-35.5); Mean Corpuscular Hemoglobin 27.7 pg (28.0-33.3); Mean Corpuscular Volume 87.6 fL (83.0-100.0); Mean Platelet Volume 9.1 fL (9.4-12.4); Monocytes # 0.8 K/mcL (0.0-1.3); Neutrophils # 1.5 K/mcL (1.6-8.9); Platelet Count 257 K/mcL (140-400); Red Blood Count 3.94 M/mcL (3.82-4.97); Red Cell Distribution Width 15.3 % (11.5-14.5); Segmented Neutrophils % 31.9 %; White Blood Count 4.7 K/mcL (4.3-11.1)
[2021-06-09 03:08] LABS: BUN/Creatinine Ratio 15 (6-26); Blood Urea Nitrogen 12 mg/dL (6-20); Calcium 8.1 mg/dL (8.6-10.3); Carbon Dioxide 27 mEq/L (23-29); Chloride 107 mEq/L (98-107); Creatine Kinase 1163 Units/L (30-223); Glucose 113 mg/dL (70-105); Osmolality,Calculated 293 (280-300); Potassium 3.1 mEq/L (3.5-5.1); Sodium 141 mEq/L (136-145); eGFR For African Americans > 60 (> 60); eGFR For Non-African Americans > 60 (> 60)
[2021-06-09] MEDS: 0.9 % Sodium Chloride 1,000 ML IVC SCH ×3 (04:22→21:50)
[2021-06-09] MEDS: *HR* OxyCODONE/APAP 5/325 TABLET PO PRN ×4 (06:41→23:21)
[2021-06-09] MEDS: Heparin 25,000UNIT/250ML 1/2NS 25,000 UNIT/250 ML IV.SOLN IVC SCH ×2 (08:59→23:21)
[2021-06-09] MEDS: lamoTRIgine 25 MG TABLET PO SCH (09:00)
[2021-06-09] MEDS: Venlafaxine XR (24 HR) 150 MG CAP.ER.24H PO SCH (09:00)
[2021-06-09] MEDS: BuPROPion XL (24 HR) 150 MG TABLET PO SCH (09:00)
[2021-06-09] MEDS ORDERED: Ringers Solution, Lactated 1,000 ML IVC SCH (10:30)
[2021-06-09] MEDS: Acetaminophen 325 MG TABLET PO PRN (20:27)
[2021-06-10 02:48] LABS: Basophils % 0.4 %; Eosinophils # 0.2 K/mcL (0.0-0.6); Eosinophils % 4.7 %; Hematocrit 34.5 % (35.3-44.9); Hemoglobin 10.6 g/dL (11.5-15.4); Immature Granulocytes % 0.4 % (0-4); Lymphocytes % 40.8 %; Mean Corpuscular HGB Conc 30.7 g/dL (31.6-35.5); Mean Corpuscular Hemoglobin 27.2 pg (28.0-33.3); Mean Corpuscular Volume 88.5 fL (83.0-100.0); Mean Platelet Volume 9.2 fL (9.4-12.4); Monocytes # 0.6 K/mcL (0.0-1.3); Monocytes % 12.1 %; Platelet Count 278 K/mcL (140-400); Red Cell Distribution Width 15.3 % (11.5-14.5); Segmented Neutrophils % 41.6 %; White Blood Count 4.9 K/mcL (4.3-11.1)
[2021-06-10 03:00] LABS: BUN/Creatinine Ratio 13 (6-26); Blood Urea Nitrogen 10 mg/dL (6-20); Calcium 7.9 mg/dL (8.6-10.3); Carbon Dioxide 25 mEq/L (23-29); Chloride 109 mEq/L (98-107); Glucose 82 mg/dL (70-105); Osmolality,Calculated 290 (280-300); Potassium 3.5 mEq/L (3.5-5.1); Sodium 141 mEq/L (136-145); eGFR For African Americans > 60 (> 60); eGFR For Non-African Americans > 60 (> 60)
[2021-06-10] MEDS: Venlafaxine XR (24 HR) 150 MG CAP.ER.24H PO SCH (07:24)
[2021-06-10] MEDS: 0.9 % Sodium Chloride 1,000 ML IVC SCH (07:24)
[2021-06-10] MEDS: lamoTRIgine 25 MG TABLET PO SCH (07:24)
[2021-06-10] MEDS: BuPROPion XL (24 HR) 150 MG TABLET PO SCH (07:24)
[2021-06-10] MEDS: *HR* OxyCODONE/APAP 5/325 TABLET PO PRN ×3 (07:29→20:54)
[2021-06-10] MEDS: Heparin 25,000UNIT/250ML 1/2NS 25,000 UNIT/250 ML IV.SOLN IVC SCH (08:20)
[2021-06-10] MEDS ORDERED: Furosemide 20 MG/2 ML VIAL IVP ONE (10:30)
[2021-06-10] MEDS: *HR* Rivaroxaban 15 MG TABLET PO SCH ×2 (11:00→15:36)
[2021-06-10] MEDS ORDERED: *HR* HYDROcodone/Acet 5/325 mg TABLET PO ONE (23:29)
[2021-06-11 02:40] LABS: Basophils % 0.4 %; Eosinophils # 0.2 K/mcL (0.0-0.6); Eosinophils % 4.5 %; Hematocrit 33.1 % (35.3-44.9); Hemoglobin 10.4 g/dL (11.5-15.4); Immature Granulocytes % 0.4 % (0-4); Lymphocytes # 1.8 K/mcL (0.6-4.6); Mean Corpuscular HGB Conc 31.4 g/dL (31.6-35.5); Mean Corpuscular Hemoglobin 27.5 pg (28.0-33.3); Mean Corpuscular Volume 87.6 fL (83.0-100.0); Monocytes # 0.7 K/mcL (0.0-1.3); Monocytes % 13.8 %; Neutrophils # 2.3 K/mcL (1.6-8.9); Platelet Count 271 K/mcL (140-400); Red Blood Count 3.78 M/mcL (3.82-4.97); Red Cell Distribution Width 15.2 % (11.5-14.5); Segmented Neutrophils % 44.9 %; White Blood Count 5.1 K/mcL (4.3-11.1)
[2021-06-11 03:01] LABS: BUN/Creatinine Ratio 12 (6-26); Blood Urea Nitrogen 9 mg/dL (6-20); Calcium 7.9 mg/dL (8.6-10.3); Carbon Dioxide 23 mEq/L (23-29); Chloride 109 mEq/L (98-107); Glucose 87 mg/dL (70-105); Osmolality,Calculated 288 (280-300); Potassium 3.3 mEq/L (3.5-5.1); Sodium 140 mEq/L (136-145); eGFR For African Americans > 60 (> 60); eGFR For Non-African Americans > 60 (> 60)
[2021-06-11] MEDS: BuPROPion XL (24 HR) 150 MG TABLET PO SCH (07:48)
[2021-06-11] MEDS: Venlafaxine XR (24 HR) 150 MG CAP.ER.24H PO SCH (07:48)
[2021-06-11] MEDS: *HR* OxyCODONE/APAP 5/325 TABLET PO PRN ×3 (07:49→22:25)
[2021-06-11] MEDS: *HR* Rivaroxaban 15 MG TABLET PO SCH ×2 (07:49→16:30)
[2021-06-11] MEDS: lamoTRIgine 25 MG TABLET PO SCH (07:49)
[2021-06-11 16:02] LABS: ABG Base Excess 2 mEq/L (-2 to 3); ABG HCO3 26 mEq/L (21-27); ABG Oxygen Saturation 93 % (95-98); ABG PCO2 38 mmHg (35-45); ABG PH 7.45 pH Units (7.32-7.45); ABG PO2 63 mmHg (85-104); ABG TCO2 27 mEq/L (20-26)
[2021-06-11] MEDS: Melatonin 3 MG TABLET PO PRN (22:25)
[2021-06-12 03:50] LABS: Basophils % 0.6 %; Eosinophils # 0.2 K/mcL (0.0-0.6); Eosinophils % 4.3 %; Hematocrit 34.8 % (35.3-44.9); Hemoglobin 10.6 g/dL (11.5-15.4); Immature Granulocytes % 0.4 % (0-4); Lymphocytes # 1.8 K/mcL (0.6-4.6); Lymphocytes % 35.7 %; Mean Corpuscular HGB Conc 30.5 g/dL (31.6-35.5); Mean Corpuscular Volume 88.8 fL (83.0-100.0); Mean Platelet Volume 9.5 fL (9.4-12.4); Monocytes # 0.6 K/mcL (0.0-1.3); Monocytes % 11.2 %; Neutrophils # 2.4 K/mcL (1.6-8.9); Platelet Count 288 K/mcL (140-400); Red Blood Count 3.92 M/mcL (3.82-4.97); Red Cell Distribution Width 15.2 % (11.5-14.5); Segmented Neutrophils % 47.8 %; White Blood Count 5.1 K/mcL (4.3-11.1)
[2021-06-12 03:58] LABS: BUN/Creatinine Ratio 11 (6-26); Blood Urea Nitrogen 10 mg/dL (6-20); Calcium 8.4 mg/dL (8.6-10.3); Carbon Dioxide 25 mEq/L (23-29); Chloride 107 mEq/L (98-107); Glucose 85 mg/dL (70-105); Osmolality,Calculated 288 (280-300); Potassium 3.6 mEq/L (3.5-5.1); Sodium 140 mEq/L (136-145); eGFR For African Americans > 60 (> 60); eGFR For Non-African Americans > 60 (> 60)
[2021-06-12] MEDS: BuPROPion XL (24 HR) 150 MG TABLET PO SCH (08:01)
[2021-06-12] MEDS: Venlafaxine XR (24 HR) 150 MG CAP.ER.24H PO SCH (08:01)
[2021-06-12] MEDS: *HR* Rivaroxaban 15 MG TABLET PO SCH ×2 (08:02→17:22)
[2021-06-12] MEDS: lamoTRIgine 25 MG TABLET PO SCH (08:02)
[2021-06-12] MEDS: *HR* OxyCODONE/APAP 5/325 TABLET PO PRN (11:05)
[2021-06-12 16:05] VITALS: BP 133/99; PULSE 99; TEMP 97.5; O2SAT 92
== END 2021-06-12 17:37 | disposition home health service (06) | DRG 134 ==
LOC: 2ANU 11:31 → EMEROOARM 11:31 → SUATTDRO 15:52 → 2ANU 17:37 → SUATTDRO 06-08 12:32
PROVIDERS: ADMIT Internal Medicine; ATTEND General Practice